=== PATIENT | female | born 1995 | race Two or more races ===

== ENCOUNTER → 2017-04-09 | Outpatient (CLI) | payer MEDICAID | LOC: HPND 13:54 | PROVIDERS: ATTEND Family Medicine | DX: O36.80X0 Pregnancy with inconclusive fetal viability, not applicable or unspecified (principal) | CPT/HCPCS: 76801 ==

== ENCOUNTER → 2017-05-22 | Outpatient (CLI) | payer MEDICAID ==
[~2017-05-22] MED LIST: METR1TAB76 PO
== END ==
LOC: HPND 12:58
PROVIDERS: ATTEND Family Medicine
DX: O99.282 Endocrine, nutritional and metabolic diseases complicating pregnancy, second trimester (principal); O24.012 Pre-existing type 1 diabetes mellitus, in pregnancy, second trimester; Z36.3 Encounter for antenatal screening for malformations
CPT/HCPCS: 76811

== ENCOUNTER → 2017-08-02 | Outpatient (CLI) | payer MEDICAID | LOC: CDED 13:42 | PROVIDERS: ATTEND Family Medicine | DX: O24.419 Gestational diabetes mellitus in pregnancy, unspecified control (principal) | CPT/HCPCS: 97802 ==

== ENCOUNTER → 2017-09-26 | Outpatient (CLI) | payer MEDICAID | LOC: HPND 09:44 | PROVIDERS: ATTEND Family Medicine | DX: O40.3XX0 Polyhydramnios, third trimester, not applicable or unspecified (principal); O26.843 Uterine size-date discrepancy, third trimester | CPT/HCPCS: 76816; 76818 ==

== ENCOUNTER 2017-10-10 08:12 | Inpatient (IN) | payer MEDICAID ==
[~2017-10-10] VITALS: Ht 147.3 cm; Wt 76.0 kg
[2017-10-10] VITALS (18 sets, daily range): BP systolic 129–159; BP diastolic 68–99; PULSE 79–108; RESP 16–20; TEMP 98.1–98.8; O2SAT 100
[~2017-10-10 08:12] MED LIST changes: -METR1TAB76 PO; +ePHEDrine/NS 25 MG/5 ML SYRINGE IV PUSH PRN
[2017-10-10] MEDS ORDERED: SODIUM CHLORID 0.9% 500 ML INJ 500 ML IV PRN (09:00)
[2017-10-10] MEDS ORDERED: LIDOCAINE HCL 1% 50 ML VIAL I-DERMAL PRN (09:00)
[2017-10-10] MEDS ORDERED: CITRIC ACID-SODIUM CITRATE LIQ 30 ML UDC PO SCH (09:00)
[2017-10-10] MEDS ORDERED: LIDOCAINE HCL 1% 50 ML VIAL INFIL PRN (09:00)
[2017-10-10] MEDS ORDERED: LACTATED RINGER'S 1000 ML INJ 1,000 ML IV PRN (09:00)
[2017-10-10] MEDS ORDERED: OXYTOCIN 30 UNITS-500ML PREMIX 500 ML IV ONE (09:00)
[2017-10-10] MEDS ORDERED: MINERAL OIL 10 ML VIAL TOPICAL PRN (09:00)
--- NOTE | 2017-10-10 09:01 | PD ---
HPI Travel History International Travel<30 Days: No Contact w/Intl Traveler<30Days: No History of Present Illness HPI 22-year-old at 40 weeks with gestational diabetes presents the OB ED for leakage of fluid. She is a patient of Dr. Davis. She reports that around 7:15 AM this morning she was going to a car and "felt a pop". She then immediately felt a gush of fluid. She started having contractions 10 minutes afterwards. Contractions have been 3-5 minutes apart. She denies vaginal bleeding and fevers. She reports history of gestational diabetes and anemia. Her gestational diabetes is controlled with diet. History Past Medical History Narrative Medical History of hypothyroidism gestational diabetes Anemia Past Surgical History Surgical History: No Previous Surgery Family History Narrative Family History Diabetes Breast cancer in grandma at 50 Social History Alcohol Use: No Tobacco Use: No Substance Abuse: No Allergies-Medications (Allergen,Severity, Reaction): Coded Allergies: No Known Allergies (Unverified Adverse Reaction, Unknown, 06/20/17) Home Meds No Active Prescriptions or Reported Meds Review of Systems Except as stated in HPI: all other systems reviewed are Neg Physical Exam Narrative GENERAL: Well-nourished, well-developed patient. SKIN: Warm and dry. HEAD: Normocephalic and atraumatic. EYES: No scleral icterus. No injection or drainage. ENT: No nasal drainage noted. Mucous membranes pink. Airway patent. NECK: Supple, trachea midline. No JVD. CARDIOVASCULAR: Regular rate and rhythm without murmurs, gallops, or rubs. RESPIRATORY: Breath sounds equal bilaterally. No accessory muscle use. ABDOMEN/GI: Abdomen soft, non-tender, bowel sounds present, no rebound, no guarding GENITOURINARY: Cervix: midposition Dilatation: 2 Effacement: 100 Station: -2 Presentation: vertex Membranes: ruptured Uterine Contractions: every 4-5min FHT's: Category: 1 Baseline: 130 Reactive: yes Variability: moderate Decels: none EXTREMITIES: No cyanosis or edema. BACK: Nontender without obvious deformity. NEUROLOGICAL: Awake and alert. Motor and sensory grossly within normal limits. Five out of 5 muscle strength in all muscle groups. Normal speech. Data Data Vital Signs Reviewed: Yes Orders Orders Ob (2e) Additional Admit Info (10/10/17 08:41) Admit To Inpatient (10/10/17 ) Code Status (10/10/17 08:55) Vital Signs (Adult) .Per protocol (10/10/17 08:55) Activity Oob Ad Sarina (10/10/17 08:55) Heart (10/10/17 08:55) Amnioinfusion (10/10/17 08:55) Urinary Catheter Management .ONCE (10/10/17 08:55) Diet Liquid (10/10/17 Breakfast) Lactated Ringer's 1000 Ml Inj (Lr 1000 M (10/10/17 08:55) Lactated Ringer's 1000 Ml Inj (Lr 1000 M (10/10/17 08:55) Sodium Chlorid 0.9% 500 Ml Inj (Ns 500 M (10/10/17 09:00) Sodium Chlor 0.9% 1000 Ml Inj (Ns 1000 M (10/10/17 09:15) Lidocaine 1% Inj (50 Ml) (Xylocaine 1% I (10/10/17 09:00) Citric Acid-Sodium Citrate Liq (Bicitra (10/10/17 09:00) Fentanyl Inj (Fentanyl Inj) (10/10/17 09:00) Fentanyl Inj (Fentanyl Inj) (10/10/17 09:00) Complete Blood Count With Diff (10/10/17 08:55) Hold Clot (10/10/17 08:55) Abo/Rh Blood Type (10/10/17 08:55) Urinalysis - C+S If Indicated (10/10/17 08:55) Drug Screen, Random Urine (10/10/17 08:55) Ob/Psych Drug Screen, Urine (10/10/17 08:55) Type And Screen (10/10/17 08:55) Resp Oxygen Non Rebreathe Mask (10/10/17 ) ^ Epidural / Intrathecal Infus (10/10/17 08:55) Oxytocin 30 Units-500ml Premix (Pitocin (10/10/17 09:00) Lidocaine 1% Inj (50 Ml) (Xylocaine 1% I (10/10/17 09:00) Light Mineral Oil (Muri-Lube Oil) (10/10/17 09:00) Inpatient Certification (10/10/17 ) Specimen To Be Collected PRN (10/10/17 08:55) Specimen To Be Collected PRN (10/10/17 08:55) Group B Strep: Negative MDM Plan 22-year-old at 40 weeks presents to the ED with leakage of fluid. She is a patient of Dr. Davis. -Intrauterine , category 1, reassuring -Cervix: 2 cm, 100% effaced, midposition, -2 -Gestation diabetes controlled with diet -GBS negative -Admit to L & D sdw Dr. Humphries Scripts No Active Prescriptions or Reported Meds Ankita Baker MD R1 Oct 10, 2017 09:01
--- NOTE | 2017-10-10 09:06 | HHI.HP ---
History & Physical H&P OB ED Note (Detail) Patient Name: Roberto Goyal Unit Number: [id number] Date of : 1995 Patient Status: Admitted Inpatient Attending Doctor: Elisha Humphries MD HPI HPI Travel History International Travel<30 Days: No Contact w/Intl Traveler<30Days: No History of Present Illness HPI 22-year-old at 40 weeks with gestational diabetes presents the OB ED for leakage of fluid. She is a patient of Dr. Davis. She reports that around 7:15 AM this morning she was going to a car and "felt a pop". She then immediately felt a gush of fluid. She started having contractions 10 minutes afterwards. Contractions have been 3-5 minutes apart. She denies vaginal bleeding and fevers. She reports history of gestational diabetes and anemia. Her gestational diabetes is controlled with diet. History (Limited) History Past Medical History Narrative Medical History of hypothyroidism gestational diabetes Anemia Past Surgical History Surgical History: No Previous Surgery Family History Narrative Family History Diabetes Breast cancer in grandma at 50 Social History Alcohol Use: No Tobacco Use: No Substance Abuse: No Allergies-Medications Allergies-Medications (Allergen,Severity, Reaction): Coded Allergies: No Known Allergies (Unverified Adverse Reaction, Unknown, 06/20/17) Home Meds No Active Prescriptions or Reported Meds ROS Review of Systems Except as stated in HPI: all other systems reviewed are Neg Physical Exam Physical Exam Narrative GENERAL: Well-nourished, well-developed patient. SKIN: Warm and dry. HEAD: Normocephalic and atraumatic. EYES: No scleral icterus. No injection or drainage. ENT: No nasal drainage noted. Mucous membranes pink. Airway patent. NECK: Supple, trachea midline. No JVD. CARDIOVASCULAR: Regular rate and rhythm without murmurs, gallops, or rubs. RESPIRATORY: Breath sounds equal bilaterally. No accessory muscle use. ABDOMEN/GI: Abdomen soft, non-tender, bowel sounds present, no rebound, no guarding GENITOURINARY: Cervix: midposition Dilatation: 2 Effacement: 100 Station: -2 Presentation: vertex Membranes: ruptured Uterine Contractions: every 4-5min FHT's: Category: 1 Baseline: 130 Reactive: yes Variability: moderate Decels: none EXTREMITIES: No cyanosis or edema. BACK: Nontender without obvious deformity. NEUROLOGICAL: Awake and alert. Motor and sensory grossly within normal limits. Five out of 5 muscle strength in all muscle groups. Normal speech. Data Data Data Vital Signs Reviewed: Yes Orders Orders Ob (2e) Additional Admit Info (10/10/17 08:41) Admit To Inpatient (10/10/17 ) Code Status (10/10/17 08:55) Vital Signs (Adult) .Per protocol (10/10/17 08:55) Activity Oob Ad Sarina (10/10/17 08:55) Heart (10/10/17 08:55) Amnioinfusion (10/10/17 08:55) Urinary Catheter Management .ONCE (10/10/17 08:55) Diet Liquid (10/10/17 Breakfast) Lactated Ringer's 1000 Ml Inj (Lr 1000 M (10/10/17 08:55) Lactated Ringer's 1000 Ml Inj (Lr 1000 M (10/10/17 08:55) Sodium Chlorid 0.9% 500 Ml Inj (Ns 500 M (10/10/17 09:00) Sodium Chlor 0.9% 1000 Ml Inj (Ns 1000 M (10/10/17 09:15) Lidocaine 1% Inj (50 Ml) (Xylocaine 1% I (10/10/17 09:00) Citric Acid-Sodium Citrate Liq (Bicitra (10/10/17 09:00) Fentanyl Inj (Fentanyl Inj) (10/10/17 09:00) Fentanyl Inj (Fentanyl Inj) (10/10/17 09:00) Complete Blood Count With Diff (10/10/17 08:55) Hold Clot (10/10/17 08:55) Abo/Rh Blood Type (10/10/17 08:55) Urinalysis - C+S If Indicated (10/10/17 08:55) Drug Screen, Random Urine (10/10/17 08:55) Ob/Psych Drug Screen, Urine (10/10/17 08:55) Type And Screen (10/10/17 08:55) Resp Oxygen Non Rebreathe Mask (10/10/17 ) ^ Epidural / Intrathecal Infus (10/10/17 08:55) Oxytocin 30 Units-500ml Premix (Pitocin (10/10/17 09:00) Lidocaine 1% Inj (50 Ml) (Xylocaine 1% I (10/10/17 09:00) Light Mineral Oil (Muri-Lube Oil) (10/10/17 09:00) Inpatient Certification (10/10/17 ) Specimen To Be Collected PRN (10/10/17 08:55) Specimen To Be Collected PRN (10/10/17 08:55) Group B Strep: Negative MDM MDM Plan 22-year-old at 40 weeks presents to the ED with leakage of fluid. She is a patient of Dr. Davis. -Intrauterine , category 1, reassuring -Cervix: 2 cm, 100% effaced, midposition, -2 -Gestation diabetes controlled with diet -GBS negative -Admit to L & D sdw Dr. Humphries Scripts No Active Prescriptions or Reported Meds Ankita Baker MD R1 Oct 10, 2017 09:01 Ankita Baker MD R1 Oct 10, 2017 09:06
[2017-10-10] MEDS ORDERED: SODIUM CHLOR 0.9% 1000 ML INJ 1,000 ML IV PRN (09:15)
[2017-10-10 09:36] LABS: AUTOMATED NEUTROPHIL # 6.3 TH/MM3 (1.8-7.7); BASOPHIL % 0.6 % (0.0-2.0); EOSINOPHIL # 0.1 TH/MM3 (0-0.4); EOSINOPHIL % 0.9 % (0.0-4.0); HEMATOCRIT 36.7 % (35.0-46.0); HEMOGLOBIN 12.6 GM/DL (11.6-15.3); LYMPH % 17.8 % (9.0-44.0); LYMPHOCYTE # 1.5 TH/MM3 (1.0-4.8); MEAN CORPUSCULAR HEMOGLOBIN 28.2 PG (27.0-34.0); MEAN CORPUSCULAR HGB CONC 34.4 % (32.0-36.0); MEAN PLATELET VOLUME 9.8 FL (7.0-11.0); MONO % 6.6 % (0.0-8.0); MONOCYTE # 0.6 TH/MM3 (0-0.9); NEUT % 74.1 % (16.0-70.0); PLATELET COUNT 213 TH/MM3 (150-450); RED BLOOD COUNT 4.48 MIL/MM3 (4.00-5.30); RED CELL DISTRIBUTION WIDTH 18.9 % (11.6-17.2); WHITE BLOOD COUNT 8.5 TH/MM3 (4.0-11.0)
[2017-10-10 09:47] LABS: BACTERIA, URINE FEW /hpf; BILIRUBIN, URINE NEG (NEG); BLOOD, URINE LARGE (NEG); GLUCOSE,URINE NEG (NEG); KETONE, URINE NEG (NEG); NITRITE,URINE NEG (NEG); PH, URINE 7.5 (5.0-8.5); SQUAMOUS EPITHELIAL CELL URINE 13 /hpf (0-5); TRANSITIONAL EPI CELLS, URINE <1 /hpf; URINE COLOR LIGHT-YELLOW (YELLW/STRAW); URINE LEUKOCYTE ESTERASE NEG (NEG)
[2017-10-10] MEDS ORDERED: MISOPROSTOL 25 MCG TAB PO ONE ×2 (10:45→15:30)
[2017-10-10] MEDS: LACTATED RINGER'S 1000 ML INJ 1,000 ML IV SCH ×3 (11:14→23:49)
--- NOTE | 2017-10-10 11:22 | PD.LABORPN ---
Subjective Subjective Patient doing well. No complaints Objective Vital Signs Vital Signs Date Time Temp Pulse Resp B/P (MAP) Pulse Ox O2 Delivery O2 Flow Rate FiO2 10/10/17 09:31 98.1 18 10/10/17 09:31 92 135/81 (99) Objective Pelvic Exam: Cervix: midposterior Dilatation: 2 Effacement: 100 Station: - 2 Presentation: vertex Membranes: SROM Uterine Contractions: every 4-6 minutes FHT's: Category: 1 Baseline: 130s Reactive: yes Variability: moderate Decels: none Assessment/Plan Assessment and Plan 22-year-old at 40 weeks in labor. -Intrauterine , category 1, reassuring -Cervix: 2 cm, 100% effaced, midposition, -2 -Cytotec 25mcg administered PO buccal -Gestation diabetes controlled with diet -GBS negative -Continue expectant management sdw Ankita Grover MD R1 Oct 10, 2017 11:22
--- NOTE | 2017-10-10 15:33 | PD.LABORPN ---
Subjective Subjective Patient doing well. No complaints Objective Vital Signs Vital Signs Date Time Temp Pulse Resp B/P (MAP) Pulse Ox O2 Delivery O2 Flow Rate FiO2 10/10/17 11:52 79 129/81 (97) 10/10/17 11:52 98.1 18 10/10/17 09:31 98.1 18 10/10/17 09:31 92 135/81 (99) Objective Pelvic Exam: Cervix: midposition Dilatation: 3 Effacement: 90 Station: -2 Presentation: vertex Membranes: SROM Uterine Contractions: every 10 min FHT's: Category: 1 Baseline: 140 Reactive: yes Variability: moderate Decels: none Assessment/Plan Assessment and Plan 22-year-old at 40 weeks in labor. -Intrauterine , category 1, reassuring -Cervix: 3cm, 90% effaced, midposition, -2 -Cytotec 25mcg administered PO buccal x 2 doses -Gestation diabetes controlled with diet -GBS negative -Continue expectant management [place] Ankita Grover MD R1 Oct 10, 2017 15:33
[2017-10-10] MEDS: MISOPROSTOL 100 MCG TAB VAGINAL SCH ×2 (16:00→20:19)
[2017-10-10] MEDS ORDERED: MISOPROSTOL 25 MCG TAB OTHER ONE (21:00)
[2017-10-10] MEDS ORDERED: DO NOT ADMINISTER ANTICOAGULANTS PRN (23:30)
[2017-10-10] MEDS ORDERED: NO SYSTEM NARCOTICS PRN (23:30)
[2017-10-10] MEDS ORDERED: ePHEDrine/NS 25 MG/5 ML SYRINGE ONE (23:36)
[2017-10-10] MEDS ORDERED: fentaNYL 2MCG-BUPIV 0.125% INJ 100 ML ONE (23:36)
[2017-10-10] MEDS ORDERED: LIDOCAINE HCL 1% PF 5 ML AMPULE ONE (23:42)
[2017-10-10] MEDS ORDERED: LIDOCAINE 2%/EPINEPHrine PF 1:200,000 20ML SDV ONE (23:42)
[2017-10-11] VITALS (45 sets, daily range): BP systolic 106–167; BP diastolic 53–80; PULSE 67–131; RESP 16–20; TEMP 98.1–99.5; O2SAT 95–100
[2017-10-11] MEDS: LACTATED RINGER'S 1000 ML INJ 1,000 ML IV SCH ×2 (03:16→07:58)
[2017-10-11] MEDS: fentaNYL 2MCG-BUPIV 0.125% 100 ML EPIDURAL PRN ×2 (05:17→06:06)
[2017-10-11] MEDS ORDERED: BUPIVACAINE/EPINEPHRINE 0.25% PF 10 ML VIAL ONE (07:14)
--- NOTE | 2017-10-11 07:23 | PD.LABORPN ---
Subjective Subjective Patient resting comfortably. Epidural in place. Feeling some contractions. Objective Vital Signs Vital Signs Date Time Temp Pulse Resp B/P (MAP) Pulse Ox O2 Delivery O2 Flow Rate FiO2 10/11/17 06:30 113 117/79 (92) 10/11/17 06:02 99.5 10/11/17 06:01 17 10/11/17 06:00 119 109/66 (80) 10/11/17 05:47 18 10/11/17 05:30 120 133/78 (96) 10/11/17 05:00 105 126/68 (87) 10/11/17 04:31 99.1 16 10/11/17 04:00 112 126/58 (80) 10/11/17 03:30 116 127/69 (88) 10/11/17 03:00 117 129/76 (93) 10/11/17 02:30 107 128/61 (83) 10/11/17 02:19 18 10/11/17 02:00 97 127/69 (88) 10/11/17 01:34 99.0 10/11/17 01:30 97 136/61 (86) 10/11/17 01:03 16 10/11/17 01:02 83 114/66 (82) 10/11/17 01:00 88 112/66 (81) 10/11/17 00:49 109/53 (71) 10/11/17 00:49 103 10/11/17 00:39 18 10/11/17 00:30 100 125/69 (87) 10/11/17 00:25 88 100 10/11/17 00:20 94 120/62 (81) 10/11/17 00:20 100 10/11/17 00:15 95 116/57 (76) 100 10/11/17 00:10 98 131/66 (87) 100 10/11/17 00:05 102 130/64 (86) 100 10/11/17 00:00 101 130/63 (85) 100 10/10/17 23:55 108 10/10/17 23:55 101 138/72 (94) 10/10/17 23:55 100 10/10/17 23:53 99 144/73 (96) 10/10/17 23:50 100 10/10/17 23:50 100 10/10/17 23:47 99 133/74 (93) 10/10/17 23:29 98.7 Objective Pelvic Exam: Cervix: midposterior Dilatation: 8 Effacement: 90 Station: - 1 Presentation: vertex, suspect OP on exam and ultrasound Membranes: SROM Uterine Contractions: every 2-3 minutes, appears in clusters FHT's: Category: 1 Baseline: 150s Reactive: yes Variability: minimal mostly Decels: none Assessment/Plan Assessment and Plan 22-year-old at 40/1 weeks in labor. GBS negative. Gestational diabetes controlled with diet -Intrauterine , category 1 -Cervix: 8 cm, 100% effaced, midposition, -1, suspect OP -Prolonged ROM ~24 hours - start prophylactic penicillin -Start pitocin 2-230 -Expect vaginal delivery Jeanne Talbert MD R2 Oct 11, 2017 7:23 am
[2017-10-11] MEDS ORDERED: OXYTOCIN 30 UNITS-500ML PREMIX 500 ML IV PRN ×2 (07:30→17:30)
[2017-10-11] MEDS ORDERED: PENICILLIN G POTASSIUM INJ 5,000,000 UNITS in SODIUM CHLORIDE 0.9% INJ 100 ML IV ONE (07:30)
[2017-10-11] MEDS ORDERED: LACTATED RINGER'S 1000 ML INJ 1,000 ML IV ONE (11:06)
--- NOTE | 2017-10-11 11:13 | PD.LABORPN ---
Subjective Subjective Patient is breathing comfortably through contractions with epidural in place. (Anna Marie Du MD R3) Objective Vital Signs Vital Signs Date Time Temp Pulse Resp B/P (MAP) Pulse Ox O2 Delivery O2 Flow Rate FiO2 10/11/17 10:53 16 10/11/17 10:30 116 141/67 (91) 10/11/17 10:00 115 135/80 (98) 10/11/17 09:30 114 118/75 (89) 10/11/17 08:00 113 129/80 (96) 10/11/17 08:00 98.8 16 10/11/17 07:00 110 133/78 (96) 10/11/17 06:30 113 117/79 (92) 10/11/17 06:02 99.5 10/11/17 06:01 17 10/11/17 06:00 119 109/66 (80) 10/11/17 05:47 18 10/11/17 05:30 120 133/78 (96) 10/11/17 05:00 105 126/68 (87) 10/11/17 04:31 99.1 16 10/11/17 04:00 112 126/58 (80) 10/11/17 03:30 116 127/69 (88) Objective Pelvic Exam: Cervix: midposition Dilatation: 8 Effacement: 80 Station: -2 Presentation: vertex Membranes: ruptured Uterine Contractions: q1-2min FHT's: Category: I Baseline: 150 Reactive: + Variability: moderate Decels: none (Anna Marie Du MD R3) Assessment/Plan Assessment and Plan 22-year-old at 40/1 weeks in labor. GBS negative. Gestational diabetes controlled with diet -No cervical change consultant several hours despite labor augmentation with Pitocin and adequate MVU's. Category I tracing, reassuring. Will proceed with Section for failure to progress. -Prolonged ROM ~24 hours - on prophylactic penicillin. dw Dr. Marcus (Anna Marie Du MD R3) Assessment and Plan Patient seen and evaluated with resident under direct supervision, agree with assessment and plan. (Raza Marcus MD) Anna Marie Du MD R3 Oct 11, 2017 11:13 Raza Marcus MD Oct 11, 2017 12:56
[2017-10-11] MEDS ORDERED: MIDAZOLAM HCL 2 MG/2 ML VIAL ONE (11:25)
[2017-10-11] MEDS ORDERED: MORPHINE SULFATE PF 5 MG/10 ML VIAL ONE (11:25)
[2017-10-11] MEDS ORDERED: ACETAMINOPHEN 1000 MG/100 ML 100 ML IV ONE (11:25)
[2017-10-11] MEDS ORDERED: LACTATED RINGER'S 1000 ML INJ 1,000 ML IV SCH ×2 (11:36→17:19)
[2017-10-11] MEDS ORDERED: PENICILLIN G POTASSIUM INJ 2,500,000 UNITS in SODIUM CHLORIDE 0.9% INJ 100 ML IV SCH (12:00)
[2017-10-11] MEDS ORDERED: ceFAZolin 2 GM PREMIX 50 ML IV SCH (12:15)
[2017-10-11] MEDS ORDERED: SODIUM CHLORIDE 0.9% FLUSH 10 ML FLUSH IV FLUSH PRN (12:30)
[2017-10-11] MEDS ORDERED: ACETAMINOPHEN 325 MG TAB PO PRN (12:30)
[2017-10-11] MEDS ORDERED: IBUPROFEN 600 MG TAB PO PRN (12:30)
[2017-10-11] MEDS ORDERED: oxyCODONE/ACETAMINOPHEN 5 MG/325 MG TAB PO PRN ×2 (12:30)
[2017-10-11] MEDS ORDERED: DOCUSATE SODIUM 50 MG/SENNA 8.6 MG TAB PO PRN (12:30)
[2017-10-11] MEDS ORDERED: ONDANSETRON HCL 4 MG/2 ML VIAL IV PUSH PRN (12:30)
[2017-10-11] MEDS ORDERED: SIMETHICONE 80 MG CHEWABLE TAB PO PRN (12:30)
[2017-10-11] MEDS ORDERED: OXYTOCIN 30 UNITS-500ML PREMIX 500 ML IV ONE ×2 (12:30→18:45)
--- NOTE | 2017-10-11 12:38 | PD.OP ---
Operative Report Date of Surgery: Oct 11, 2017 Preoperative Diagnosis: Postoperative Diagnosis: Procedure: Primary Low Transverse Section Anesthesia: Epidural Surgeon: Raza Marcus MD Rn Rehabilitation(s): Chandrika Okeefe Resident Surgeon: Anna Marie Du MD Operation and Findings: PREOP NOTE: The patient is a 22 at 40-1/7 weeks with spontaneous rupture of membranes. Labor was augmented with Pitocin and she reached 8cm dilation without further cervical change. She was taken for section due to failure to progress. PREOPERATIVE DIAGNOSIS 1. 40-1/7 weeks gestation. 2. Failure to progress. POSTOPERATIVE DIAGNOSIS 1. 40-1/7 weeks gestation. 2. Failure to progress. PROCEDURE Primary low transverse section. SURGEON Dr. Raza Marcus and Dr. Anna Marie Du R3 FINDINGS A normal viable male weight 3315g and Apgars 9/9. Normal fallopian tubes , ovaries, and uterus. COMPLICATIONS None COUNTS Correct ESTIMATED BLOOD LOSS 800 cc FLUIDS Crystalloids CONDITION The patient tolerated the procedure well and went to the PACU for recovery in good condition. PROCEDURE IN DETAIL The patient was taken to the operating room, identified by name band and verbally. The time out was done and patient was prepped and draped in the usual sterile fashion for section. A Pfannenstiel incision was made then carried down to the fascia. The fascia was taken off the rectus muscle by blunt and sharp dissection. The rectus muscles were spread bluntly and the peritoneum entered under direct vision without difficulty. A bladder flap was created and the uterus was incised transversely along the lower uterine segment. Once the uterine cavity was entered, clear fluid was noted. The head was grasped and fundal pressure was applied followed by uncomplicated delivery of the head. The rest of the body was delivered without difficulty. Cord clamping was delayed for 45 seconds before the cord was doubly clamped and cut and the baby was handed to the baby nurse. The cord blood was obtained and the placenta was delivered manually. The uterus was curettaged with a wet lap. The uterine incision was repaired with 0 Monocryl in a running fashion. Hemostasis was achieved with figure of eight sutures. Hemostasis was excellent. All incisions were carefully inspected. The gutters were cleaned of blood and debris. The fascia was repaired with 1-0 PDS in a running fashion. The subcuticular layer was repaired with 3-0 Vicryl. The skin was then repaired with a 4-0 Vicryl in a subcuticular fashion and Dermabond. The wound was sterilely dressed with a Primapore dressing. The patient tolerated the procedure well and went to PACU for recovery in good condition. Attestation Patient seen and evaluated with resident under direct supervision, agree with assessment and plan. I was present and scrubbed for the entire surgery. Anna Marie Du MD R3 Oct 11, 2017 12:38 Raza Marcus MD Oct 11, 2017 13:02
[2017-10-11] MEDS ORDERED: CITRIC ACID-SODIUM CITRATE LIQ 30 ML UDC PO SCH (12:45)
[2017-10-11] MEDS ORDERED: SODIUM CHLORIDE 0.9% FLUSH 10 ML FLUSH IV FLUSH SCH (21:00)
[2017-10-12] VITALS: TEMP 97.9
[2017-10-12 04:00] VITALS: BP 122/70; PULSE 67; RESP 18; TEMP 98.4
[2017-10-12 06:41] LABS: AUTOMATED NEUTROPHIL # 11.8 TH/MM3 (1.8-7.7); BASOPHIL % 0.2 % (0.0-2.0); EOSINOPHIL % 0.1 % (0.0-4.0); HEMATOCRIT 26.5 % (35.0-46.0); HEMOGLOBIN 8.8 GM/DL (11.6-15.3); LYMPH % 13.2 % (9.0-44.0); MEAN CELL VOLUME 82.2 FL (80.0-100.0); MEAN CORPUSCULAR HEMOGLOBIN 27.3 PG (27.0-34.0); MEAN CORPUSCULAR HGB CONC 33.3 % (32.0-36.0); MEAN PLATELET VOLUME 9.3 FL (7.0-11.0); MONO % 6.3 % (0.0-8.0); MONOCYTE # 0.9 TH/MM3 (0-0.9); NEUT % 80.2 % (16.0-70.0); PLATELET COUNT 185 TH/MM3 (150-450); RED BLOOD COUNT 3.22 MIL/MM3 (4.00-5.30); RED CELL DISTRIBUTION WIDTH 19.9 % (11.6-17.2); WHITE BLOOD COUNT 14.8 TH/MM3 (4.0-11.0)
[2017-10-12 08:00] VITALS: BP 109/64; PULSE 85; RESP 20; TEMP 98.1
--- NOTE | 2017-10-12 08:21 | HHI.OB ---
Subjective Post Operative Day: 1 Remarks Pt seen and examined this morning. Postoperative day # 1 AFVSS overnight. Incision not draining. Decreased lochia. Denies dysuria. No breast tenderness. She is feeding the baby via breast. Appetite good. No nausea or vomiting. Patient has not yet had a bowel movement, but does endorse bowel gas. Ambulating well. Denies calf pain or shortness of breath. Otherwise, she is doing well this morning and has no other concerns. (Bahman Reyes MD R2) Remarks Patient seen and evaluated with resident under direct supervision, agree with assessment and plan. (Raza Marcus MD) Objective Vitals/I&O Vital Signs Date Time Temp Pulse Resp B/P (MAP) Pulse Ox O2 Delivery O2 Flow Rate FiO2 10/12/17 08:00 98.1 85 20 109/64 (79) 10/12/17 04:00 98.4 67 18 122/70 (87) 10/12/17 00:00 97.9 10/11/17 23:35 20 10/11/17 23:35 99 136/75 (95) 10/11/17 20:00 67 106/58 (74) 10/11/17 20:00 98.2 10/11/17 20:00 18 10/11/17 16:00 100 133/68 (89) 10/11/17 16:00 98.1 18 10/11/17 14:10 95 18 131/72 (91) 10/11/17 14:10 98.4 10/11/17 13:30 106 18 122/60 (80) 95 10/11/17 13:15 126 10/11/17 13:02 99 10/11/17 13:01 18 10/11/17 13:00 112/56 (74) 10/11/17 12:48 131 146/65 (92) 10/11/17 12:29 110 18 10/11/17 12:28 167/67 (100) 10/11/17 10:53 16 10/11/17 10:30 116 141/67 (91) 10/11/17 10:00 115 135/80 (98) 10/11/17 09:30 114 118/75 (89) (Bahman Reyes MD R2) Result Diagram: 10/12/17 0614 Objective Remarks GENERAL: Well-nourished, well-developed patient. CARDIOVASCULAR: Regular rate and rhythm without murmurs, gallops, or rubs. RESPIRATORY: Breath sounds equal bilaterally. No accessory muscle use. ABDOMEN/GI: Abdomen soft, non-tender, bowel sounds present. Incision: Clean, dry and intact. Fundus: Firm, non-tender at umbilicus. GENITOURINARY: Light to moderate bleeding. EXTREMITIES: No cyanosis or edema, non-tender, without signs of DVT. Medications and IVs Current Medications Medications (Trade) Dose Ordered Sig/Jose Guadalupe Route Start Time Stop Time Status Last Admin Fentanyl/ Bupivacaine HCl 100 ml @ 10 mls/hr TITRATE PRN EPIDURAL 10/10/17 23:30 10/11/17 06:06 Lactated Ringer's 1,000 ml @ 150 mls/hr Q6H40M IV 10/11/17 11:36 Cefazolin Sodium/ Dextrose 50 ml @ 100 mls/hr RAW STOCK DYEING MACHINE TENDER IV 10/11/17 12:15 10/15/17 12:14 (Bicitra Liq) 30 ml RAW STOCK DYEING MACHINE TENDER PO 10/11/17 12:45 10/15/17 12:44 Lactated Ringer's 1,000 ml @ 100 mls/hr Q10H IV 10/11/17 17:19 10/12/17 13:18 10/11/17 01:00 Oxytocin 500 ml @ 100 mls/hr UNSCH X1 PRN IV 10/11/17 17:30 10/12/17 17:29 (NS Flush) 2 ml BID IV FLUSH 10/11/17 21:00 (NS Flush) 2 ml UNSCH PRN IV FLUSH 10/11/17 12:30 (Mylicon Chew) 80 mg QID PRN PO 10/11/17 12:30 (Tylenol) 650 mg Q6H PRN PO 10/11/17 12:30 (Motrin) 800 mg Q8HR PRN PO 10/11/17 12:30 10/12/17 05:03 (Percocet 5-325 Mg) 1 tab Q4H PRN PO 10/11/17 12:30 (Percocet 5-325 Mg) 2 tab Q4H PRN PO 10/11/17 12:30 (Lisset-Colace) 2 tab Q12H PRN PO 10/11/17 12:30 (M-M-R Ii Inj) 0.5 ml ONCE ONCE SQ 10/12/17 16:00 10/12/17 16:01 (Boostrix Inj) 0.5 ml ONCE ONCE IM 10/12/17 16:00 10/12/17 16:01 (Zofran Inj) 4 mg Q6H PRN IV PUSH 10/11/17 12:30 10/11/17 18:16 (Bahman Reyes MD R2) Assessment/Plan Problem List: (1) Single delivery by section ICD Codes: O82 - Encounter for delivery without indication Status: Acute Assessment and Plan 22 y/o female who is postoperative #1 s/p section. -Continue routine care. -Percocet and Motrin PRN pain. -Encouraged OOB. Advised pelvic rest for 6 wks. Patient will need follow-up appointment in 1-2 weeks for incision check. -Re: ctrl, she would like to discuss her options at her follow-up appointment. -Anticipate discharge in 1-2 days. tracie Marcus MD Discharge Planning 1-2 days (Bahman Reyes MD R2) Bahman Reyes MD R2 Oct 12, 2017 08:21 Raza Marcus MD Oct 12, 2017 09:51
[2017-10-12 09:27] LABS: BANDS 8 % (0-6); LYMPHOCYTES 13 % (9-44); MONOCYTES 6 % (0-8); OVALOCYTES 1+ (NORMAL); POLYS (SEG NEUTROPHILS) 73 % (16-70)
[2017-10-12 12:00] VITALS: BP 117/64
[2017-10-12] MEDS: IBUPROFEN 800 MG TAB PO PRN ×2 (15:05→23:35)
[2017-10-12] MEDS ORDERED: MEASLES, MUMPS, RUBELLA VACCINE 0.5 ML VIAL SQ ONE (16:00)
[2017-10-12] MEDS ORDERED: DIPHTH/TETANUS/ACEL PERTUSSIS (BOOSTER) 0.5 ML VIAL/PFS IM ONE (16:00)
[2017-10-12 20:00] VITALS: BP 125/65; PULSE 90; RESP 18; TEMP 98.2
[2017-10-13 05:18] LABS: HEMATOCRIT 24.7 % (35.0-46.0); HEMOGLOBIN 8.3 GM/DL (11.6-15.3); MEAN CELL VOLUME 82.5 FL (80.0-100.0); MEAN CORPUSCULAR HEMOGLOBIN 27.8 PG (27.0-34.0); MEAN CORPUSCULAR HGB CONC 33.6 % (32.0-36.0); PLATELET COUNT 182 TH/MM3 (150-450); RED BLOOD COUNT 2.99 MIL/MM3 (4.00-5.30); RED CELL DISTRIBUTION WIDTH 19.3 % (11.6-17.2)
--- NOTE | 2017-10-13 07:01 | HHI.OB ---
Subjective Post Operative Day: 2 Remarks Pt seen and examined this morning. Postoperative day # 2 AFVSS overnight. Incision not draining. Decreased lochia. Denies dysuria. No breast tenderness. She is feeding the baby via breast. Appetite good. No nausea or vomiting. No dizziness, blurry vision, or chest pain. Patient has not yet had a bowel movement, but does endorse bowel gas. Ambulating well. Denies calf pain or shortness of breath. Otherwise, she is doing well this morning and has no other concerns. Objective Vitals/I&O Vital Signs Date Time Temp Pulse Resp B/P (MAP) Pulse Ox O2 Delivery O2 Flow Rate FiO2 10/12/17 20:00 98.2 90 18 125/65 (85) 10/12/17 12:00 117/64 (81) 10/12/17 08:00 98.1 85 20 109/64 (79) Result Diagram: 10/13/17 0443 Objective Remarks GENERAL: Well-nourished, well-developed patient. CARDIOVASCULAR: Regular rate and rhythm without murmurs, gallops, or rubs. RESPIRATORY: Breath sounds equal bilaterally. No accessory muscle use. ABDOMEN/GI: Abdomen soft, non-tender, bowel sounds present. Incision: Clean, dry and intact. Fundus: Firm, mildly tender at umbilicus. GENITOURINARY: Light to moderate bleeding. EXTREMITIES: No cyanosis or edema, non-tender, without signs of DVT. Medications and IVs Current Medications Medications (Trade) Dose Ordered Sig/Jose Guadalupe Route Start Time Stop Time Status Last Admin Fentanyl/ Bupivacaine HCl 100 ml @ 10 mls/hr TITRATE PRN EPIDURAL 10/10/17 23:30 10/11/17 06:06 Lactated Ringer's 1,000 ml @ 150 mls/hr Q6H40M IV 10/11/17 11:36 Cefazolin Sodium/ Dextrose 50 ml @ 100 mls/hr ELEMENTARY SECRETARY IV 10/11/17 12:15 10/15/17 12:14 (Bicitra Liq) 30 ml ELEMENTARY SECRETARY PO 10/11/17 12:45 10/15/17 12:44 (NS Flush) 2 ml BID IV FLUSH 10/11/17 21:00 (NS Flush) 2 ml UNSCH PRN IV FLUSH 10/11/17 12:30 (Mylicon Chew) 80 mg QID PRN PO 10/11/17 12:30 (Tylenol) 650 mg Q6H PRN PO 10/11/17 12:30 (Percocet 5-325 Mg) 1 tab Q4H PRN PO 10/11/17 12:30 (Percocet 5-325 Mg) 2 tab Q4H PRN PO 10/11/17 12:30 (Lisset-Colace) 2 tab Q12H PRN PO 10/11/17 12:30 (Zofran Inj) 4 mg Q6H PRN IV PUSH 10/11/17 12:30 10/11/17 18:16 (Motrin) 800 mg Q8HR PRN PO 10/12/17 15:00 10/12/17 23:35 Assessment/Plan Problem List: (1) Single delivery by section ICD Codes: O82 - Encounter for delivery without indication Status: Acute (2) Postoperative anemia due to acute blood loss ICD Codes: D62 - Acute posthemorrhagic anemia (3) Gestational diabetes ICD Codes: O24.419 - Gestational diabetes mellitus in , unspecified control Assessment and Plan 22 y/o female who is postoperative #2 s/p section. -Continue routine care. -Per post-op anemia, patient denies shortness of breath, chest pain, or blurry vision. H/H stable at 8.3 compared to previous day of 8.8 -Start ferrous sulfate 325mg PO BID -Percocet and Motrin PRN pain -Encouraged OOB. Advised pelvic rest for 6 wks. Patient will need follow-up appointment in 1 week for incision check and post- visit in 6 weeks. -Re: ctrl, she would like to discuss her options at her follow-up appointment. -Anticipate discharge today. wdw OB attending Discharge Planning Discharge home today Jeanne Davis MD R2 Oct 13, 2017 7:01 am
[2017-10-13] MEDS: IBUPROFEN 800 MG TAB PO PRN (07:58)
[2017-10-13 08:00] VITALS: BP 129/84; PULSE 80; RESP 20; TEMP 98.2; O2SAT 100
[2017-10-13] MEDS ORDERED: FERROUS SULFATE 325 MG (65 MG ELEMENTAL IRON) TAB PO SCH (09:00)
--- NOTE | 2017-10-13 09:31 | HHI.DCPOC ---
Discharge Care Plan Diagnosis: (1) Prolonged rupture of membranes, greater than 24 hours, delivered (2) Single delivery by section (3) Gestational diabetes Report Symptoms to Your Doctor -Temperature above 100.5 degrees -Redness, of incision or excessive or foul smelling drainage -Unusual pain or calf pain -Increased vaginal bleeding -Painful or difficulty urinating -Feelings of extreme sadness or anxiety after 2 weeks Goals to Promote Your Health * To prevent worsening of your condition and complications * To maintain your health at the optimal level Directions to Meet Your Goals Take your medications as prescribed Follow your dietary instruction Follow activity as directed Ensure plenty of rest for recovery Drink fluids for hydration Keep your appointments as scheduled Take your immunizations and boosters as scheduled If your symptoms worsen call your PCP, if no PCP go to Urgent Care Center or Emergency Room Smoking is Dangerous to Your Health. Avoid second hand smoke Call the 24-hour crisis hotline for domestic abuse at Jeanne Davis MD R2 Oct 13, 2017 9:31 am
[2017-10-13] MEDS ORDERED: OXYC1TAB63 PO (09:56)
[2017-10-13] MEDS ORDERED: IBUP1TAB7 PO (09:56)
[2017-10-13] MEDS ORDERED: FERR325T20 PO (09:56)
== END 2017-10-13 14:18 | disposition home or self-care (01) | DRG 765 ==
LOC: HOBED 08:12 → H2EB 08:48 → H1EA 10-11 13:51
PROVIDERS: ADMIT Obstetrics & Gynecology; ATTEND Obstetrics & Gynecology
PROC: 10D00Z1 Extraction of Products of Conception, Low, Open Approach (ICD-10-PCS; principal; 2017-10-11)
DX: O24.420 Gestational diabetes mellitus in childbirth, diet controlled (principal); D62 Acute posthemorrhagic anemia; O62.2 Other uterine inertia; E03.9 Hypothyroidism, unspecified; O99.02 Anemia complicating childbirth; O99.284 Endocrine, nutritional and metabolic diseases complicating childbirth; O42.02 Full-term premature rupture of membranes, onset of labor within 24 hours of rupture; Z3A.40 40 weeks gestation of pregnancy; Z37.0 Single live birth; Z83.3 Family history of diabetes mellitus
CPT/HCPCS: 59025; 80307; 81001; 84112; 85007; 85025; 85027; 86850; 86900; 86901; J0131; J2250; J2274; J2405; J2540; J2590; J3010; J7120